=== PATIENT | female | born 1965 | race Caucasian/White ===

== ENCOUNTER 2016-10-02 18:26 | Emergency (ER) | payer OTHER ==
[2016-10-02] MEDS ORDERED: Sodium Chloride 0.9% 1,000 ML IV ONE (19:21)
[2016-10-02] MEDS ORDERED: Ketorolac 30 MG/ML SDV IVPUSH ONE (19:34)
[2016-10-02] MEDS ORDERED: cefTRIAXone 2 GM in Premix Bag 1 BAG IV ONE (19:55)
[2016-10-02 20:18] LABS: CHLORIDE,CL 99 mmol/L (98-110); SODIUM,NA 135 mmol/L (136-146)
--- NOTE | 2016-10-02 20:33 | EDM.PDOC ---
ED HPI GENERAL MEDICAL PROBLEM - General Chief Complaint: General Stated Complaint: PT HAS PAIN IN GROIN AREA Time Seen by Provider: 10/02/16 19:20 - History of Present Illness INITIAL COMMENTS - FREE TEXT/NARRATIVE: History of present illness: [50-year-old female Presenting with acute pain to right groin. Patient indicates that she has been putting hot compresses and it has come to ahead that she does struggle with diabetes and felt like she might need some additional help. Review of systems: As per history of present illness and below otherwise all systems reviewed and negative. Past medical history: As per history of present illness and as reviewed below otherwise noncontributory. Surgical history: As per history of present illness and as reviewed below otherwise noncontributory. Social history: No reported history of drug or alcohol abuse. Family history: As per history of present illness and as reviewed below otherwise noncontributory. Physical exam: HEENT: Atraumatic, normocephalic, pupils reactive, negative for conjunctival pallor or scleral icterus, mucous membranes moist, throat clear, neck supple, nontender, trachea midline. Lungs: Clear to auscultation, breath sounds equal bilaterally, chest nontender. Heart: S1S2, regular, negative for clicks, rubs, or JVD. Abdomen: Soft, nondistended, nontender. Negative for masses or hepatosplenomegaly. Negative for costovertebral tenderness. Pelvis: Stable nontender. Genitourinary: Deferred. Rectal: Deferred. Extremities: Atraumatic, negative for cords or calf pain. Neurovascular unremarkable. Neuro: Awake, alert, oriented. Cranial nerves II through XII unremarkable. Cerebellum unremarkable. Motor and sensory unremarkable throughout. Exam nonfocal. Skin: Right groin with A. small diffuse non-boggy area of cellulitis. Diagnostics: [] Therapeutics: [2 g Rocephin IV] Impression: [cellulitis] Plan: [By] Definitive disposition and diagnosis as appropriate pending reevaluation and review of above. Right Groin Pain Score (Numeric/FACES): 8 - Related Data Allergies Allergy/AdvReac Type Severity Reaction Status Date / Time amoxicillin [Amoxicillin] Allergy Hives Verified 10/02/16 18:51 Home Meds: Home Meds Aspirin [Adult Low Dose Aspirin EC] 1 tab PO DAILY 02/04/14 [History] Clopidogrel [Plavix] 75 mg PO DAILY 02/04/14 [History] Furosemide [Lasix] 40 mg PO BID 02/04/14 [History] Insulin Glarg,Human.Rec.Analog [Lantus] 20 unit SUBCUT BEDTIME 02/04/14 [History ] Isosorbide Mononitrate [Imdur] 90 mg PO DAILY 02/04/14 [History] Potassium Chloride 2 meq PO TID 02/04/14 [History] atorvaSTATin [Lipitor] 40 mg PO DAILY 02/04/14 [History] metFORMIN [Glucophage] 1,000 mg PO BIDMEALS 02/04/14 [History] Albuterol [Proventil HFA] 1 - 2 puff PO Q4HR PRN 12/07/14 [History] Albuterol [Proventil Neb Soln] 1 vial INH QID PRN 12/07/14 [History] Fenofibrate Nanocrystallized [Tricor] 145 mg PO DAILY 12/07/14 [History] Metoclopramide [Reglan] 5 mg PO TIDAC 12/07/14 [History] Metoprolol Succinate [Toprol XL] 50 mg PO DAILY 12/07/14 [History] Pramipexole [Mirapex] 0.125 mg PO ASDIRECTED PRN 12/07/14 [History] Tiotropium [Spiriva HandiHaler] 18 mcg PO DAILY 12/07/14 [History] Codeine/guaiFENesin [Robitussin AC] 5 ml PO Q6H PRN 07/05/15 [History] Nitroglycerin [Nitrolingual] 1 spray SL ASDIRECTED PRN 07/05/15 [History] Omeprazole 20 mg PO BID 07/05/15 [History] Gabapentin [Neurontin] 100 mg PO BEDTIME 10/01/15 [History] Hydrocodone/Acetaminophen [Hydrocodon-Acetaminophen 5-325] 1 - 2 tab PO Q4H PRN 10/01/15 [History] Ranitidine [Zantac] 300 mg PO BID 10/01/15 [History] Past Medical History HEENT History: Reports: Hard of Hearing Cardiovascular History: Reports: CAD, Heart Failure, High Cholesterol, Hypertension, DE, Stents, Other (See Below) Other Cardiovascular History: 9 stents total Respiratory History: Reports: COPD Other Respiratory History: not on home 02; Emphysema Gastrointestinal History: Reports: GERD Other Gastrointestinal History: DIFFICULTY WITH DIGESTION ON REGLAN Genitourinary History: Reports: Urinary Incontinence Other Genitourinary History: hole in bladder Musculoskeletal History: Reports: Arthritis, Back Pain, Chronic Neurological History: Reports: Headaches, Chronic Other Neuro History: Restless Legs Psychiatric History: Reports: Anxiety, Depression Endocrine/Metabolic History: Reports: Diabetes, Type II Other Endocrine/Metabolic History: Thyroid problem, still for diagnostics if hypo or hyper Oncologic (Cancer) History: Reports: Other (See Below) 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 - Infectious Disease History Infectious Disease History: Reports: Chicken Pox - Past Surgical History Cardiovascular Surgical History: Reports: Coronary Artery Stent GI Surgical History: Reports: Colonoscopy Female Surgical History: Reports: Hysterectomy Musculoskeletal Surgical History: Reports: Shoulder Surgery Other Musculoskeletal Surgeries/Procedures:: right arm surgery Social & Family History - Family History Family Medical History: Noncontributory - Tobacco Use Smoking Status *Q: Current Every Day Smoker Years of Tobacco use: 40 Packs/Tins Daily: 0.3 Used Tobacco, but Quit: No Second Hand Smoke Exposure: No - Caffeine Use Caffeine Use: Reports: Coffee Caffeine Use Comment: 1cup/day - Alcohol Use Days Per Week of Alcohol Use: 0 - Recreational Drug Use Recreational Drug Use: No Drug Use in Last 12 Months: No ED ROS GENERAL - Review of Systems Review Of Systems: See Below (See history of present illness) ED EXAM, GENERAL - Physical Exam Exam: See Below (History of present illness) Course - Vital Signs Last Recorded V/S: Last Vital Signs Temp 36.7 C 10/02/16 18:47 Pulse 78 10/02/16 18:47 Resp 19 10/02/16 18:47 BP 130/75 10/02/16 18:47 Pulse Ox 95 10/02/16 18:47 - Orders/Labs/Meds Orders: Active Orders 24 hr Category Date Time Status cefTRIAXone [Rocephin in Dextrose,Iso-Osm 2 GM/50 ML] 2 Med 10/02/16 19:55 Ordered gm Premix Bag 1 bag IV ONETIME Medication Orders Ceftriaxone Sodium/Dextrose 2 (gm/ Premix) 50 mls @ 100 mls/hr IV ONETIME ONE Stop: 10/02/16 20:24 Last Admin: 10/02/16 20:05 Dose: 100 mls/hr Labs: Laboratory Tests 10/02/16 10/02/16 Range/Units 19:50 19:50 WBC 21.00 H (4.0-11.0) K/uL RBC 4.68 (4.30-5.90) M/uL Hgb 13.1 (12.0-16.0) g/dL Hct 39.5 (36.0-46.0) % MCV 84.4 (80.0-98.0) fL MCH 28.0 (27.0-32.0) pg MCHC 33.2 (31.0-37.0) g/dL RDW Std Deviation 43.3 (28.0-62.0) fl RDW Coeff of Joseph 14 (11.0-15.0) % Plt Count 324 (150-400) K/uL MPV 9.20 (7.40-12.00) fL Add Manual Diff YES Neutrophils % (Manual) 64 (48.0-80.0) % Band Neutrophils % 4 % Lymphocytes % (Manual) 28 (16.0-40.0) % Monocytes % (Manual) 3 (0.0-15.0) % Eosinophils % (Manual) 1 (0.0-7.0) % Nucleated RBC % 0.0 /100WBC Absolute Seg Neuts 13.4 Band Neutrophils # 0.8 Lymphocytes # (Manual) 5.9 Monocytes # (Manual) 0.6 Eosinophils # (Manual) 0.2 Nucleated RBCs # 0 K/uL Sodium 135 L (136-146) mmol/L Potassium 3.4 L (3.5-5.1) mmol/L Chloride 99 (98-110) mmol/L Carbon Dioxide 22 (21-31) mmol/L BUN 20 (6.0-23.0) mg/dL Creatinine 0.8 (0.6-1.5) mg/dL Est Cr Clr Drug Dosing 71.03 mL/min Estimated GFR (MDRD) > 60.0 ml/min Glucose 189 H (60-110) mg/dL Calcium 9.2 (8.8-10.8) mg/dL Total Bilirubin 0.5 (0.1-1.5) mg/dL AST 15 (5-40) IU/L ALT 23 (8-54) IU/L Alkaline Phosphatase 109 (40-150) Total Protein 6.7 (6.0-8.0) g/dL Albumin 3.7 (3.5-5.0) g/dL Globulin 3.0 (2.0-3.5) g/dL Albumin/Globulin Ratio 1.2 L (1.3-2.8) Meds: Medications Generic Name Dose Route Start Last Admin Trade Name Freq PRN Reason Stop Dose Admin Ceftriaxone Sodium/Dextrose 2 50 mls @ 100 mls/hr 10/02/16 19:55 10/02/16 20: 05 gm/ Premix IV 10/02/16 20:24 100 mls/hr ONETIME ONE Administration Discontinued Medications Generic Name Dose Route Start Last Admin Trade Name Freq PRN Reason Stop Dose Admin Sodium Chloride 1,000 mls @ 999 mls/hr 10/02/16 19:21 10/02/16 19:49 Normal Saline IV 10/02/16 20:21 999 mls/hr STAT ONE Administration Ketorolac Tromethamine 30 mg 10/02/16 19:34 10/02/16 19:50 Toradol IVPUSH 10/02/16 19:35 30 mg ONETIME ONE Administration Departure - Departure Time of Disposition: 20:47 Disposition: Home, Self-Care 01 Condition: good Clinical Impression: Cellulitis - Discharge Information Forms: ED Department Discharge Additional Instructions: The following information is given to patients seen in the emergency department who are being discharged to home. This information is to outline your options for follow-up care. We provide all patients seen in our emergency department with a follow-up referral. The need for follow-up, as well as the timing and circumstances, are variable depending upon the specifics of your emergency department visit. If you don't have a primary care physician on staff, we will provide you with a referral. We always advise you to contact your personal physician following an emergency department visit to inform them of the circumstance of the visit and for follow-up with them and/or the need for any referrals to a consulting specialist. The emergency department will also refer you to a specialist when appropriate. This referral assures that you have the opportunity for follow-up care with a specialist. All of these measure are taken in an effort to provide you with optimal care, which includes your follow-up. Under all circumstances we always encourage you to contact your private physician who remains a resource for coordinating your care. When calling for follow-up care, please make the office aware that this follow-up is from your recent emergency room visit. If for any reason you are refused follow-up, please contact the [facility] Emergency Department at and asked to speak to the emergency department charge nurse. Take medication as directed Followup with PCP 1-2 days Return to ED as needed as discussed - My Orders Last 24 Hours: My Active Orders 10/02/16 19:55 cefTRIAXone [Rocephin in Dextrose,Iso-Osm 2 GM/50 ML] 2 gm Premix Bag 1 bag IV ONETIME - Assessment/Plan Last 24 Hours: My Active Orders 10/02/16 19:55 cefTRIAXone [Rocephin in Dextrose,Iso-Osm 2 GM/50 ML] 2 gm Premix Bag 1 bag IV ONETIME
[2016-10-02 22:02] VITALS: BP 126/65
== END 2016-10-02 21:00 | disposition home or self-care (01) ==
LOC: MW.ED 18:26
DX: L03.314 Cellulitis of groin (principal); I11.0 Hypertensive heart disease with heart failure; I50.9 Heart failure, unspecified; F32.9 Major depressive disorder, single episode, unspecified; I25.810 Atherosclerosis of coronary artery bypass graft(s) without angina pectoris; F17.210 Nicotine dependence, cigarettes, uncomplicated; E11.9 Type 2 diabetes mellitus without complications; M19.90 Unspecified osteoarthritis, unspecified site; J44.9 Chronic obstructive pulmonary disease, unspecified; I25.2 Old myocardial infarction; F41.9 Anxiety disorder, unspecified; Z95.1 Presence of aortocoronary bypass graft; Z90.710 Acquired absence of both cervix and uterus; Z88.1 Allergy status to other antibiotic agents; Z79.82 Long term (current) use of aspirin; Z79.4 Long term (current) use of insulin; Z79.899 Other long term (current) drug therapy
CPT/HCPCS: 36415; 80053; 85025; 96361; 96365; 96375; 99283; J0696; J1885; J7040; 99284